=== PATIENT | male | born 1965 | race Caucasian/White ===

== ENCOUNTER 2023-07-01 08:23 | Emergency (ER) | payer OTHER ==
[~2023-07-01] VITALS: Ht 182.9 cm; Wt 120.0 kg
[2023-07-01 08:34] VITALS: BP 140/92
[2023-07-01] MEDS ORDERED: LAMO100 PO ×2 (08:58)
[2023-07-01] MEDS ORDERED: NADO40 PO (08:58)
[2023-07-01] MEDS ORDERED: LOSARTAN POTAS100 M1 PO (08:59)
[2023-07-01] MEDS ORDERED: Budeprion Xl300 MG PO (08:59)
== END 2023-07-01 10:00 | disposition home or self-care (01) ==
LOC: ER 08:23
DX: M25.531 Pain in right wrist (principal); I10 Essential (primary) hypertension; Z91.040 Latex allergy status; Z88.8 Allergy status to other drugs, medicaments and biological substances; Z79.899 Other long term (current) drug therapy
CPT/HCPCS: 99283

== ENCOUNTER 2023-10-13 09:17 | Day surgery (SDC) | payer BC ==
[~2023-10-13] VITALS: Ht 180.3 cm; Wt 119.3 kg
[~2023-10-13 09:17] MED LIST: ALLEGRA ALLERG180 MG PO; AZELASTINE137 MCG/06; Balanced Salt Epinephrine Irrigation Solution 500 mL IR SCH; Budeprion Xl300 MG PO; LAMO100 PO; LOSARTAN POTAS100 M1 PO; Lactated Ringer's 0 ML IV ONE; Lidocaine HCl/Pf 1% 5 ML VIAL XX SCH; MIRT30 PO; Midazolam HCl 1MG / ML 2ML Vial ONE; Moxifloxacin HCL 0.5 MG/0.1 ML 0.4MLSYR LEFTEYE SCH; NADO40 PO; NS 500 ML IV ONE; PHENYLEPHRINE\\TROPICAMIDE\\TETRACAINE OPHTHALMIC DILATING SOLN LEFTEYE PRN; Povidone-Iodine 450 DROP/30 ML Solution LEFTEYE SCH; Povidone-Iodine 450 DROP/30 ML Solution ONE; Triamcinolone Inj Susp 40 MG / ML 1ML Vial INJ SCH; Triamcinolone Inj Susp 40 MG / ML 1ML Vial ONE
[2023-10-13] MEDS ORDERED: NS 500 ML IV ONE ×2 (09:29)
[2023-10-13] MEDS ORDERED: NASACORT10.8 ML (09:33)
--- NOTE | 2023-10-13 09:48 | NUR ---
10/13/23 0948 Anay Dick IN AT 0931 PLEDGETT IN AT [address]
[2023-10-13] MEDS ORDERED: Triamcinolone Inj Susp 40 MG / ML 1ML Vial ONE (10:14)
[2023-10-13] MEDS ORDERED: Tetracaine HCl 0.5% Opth Soln 15 ml LEFTEYE ONE (10:15)
[2023-10-13 10:37] VITALS: BP 115/77
== END 2023-10-13 10:50 | disposition home or self-care (01) ==
LOC: ORSCSDS 09:17
PROVIDERS: Ophthalmology
PROC: 08RK3JZ Replacement of Left Lens with Synthetic Substitute, Percutaneous Approach (ICD-10-PCS; principal; 2023-10-13 10:30)
DX: H25.13 Age-related nuclear cataract, bilateral (principal); I10 Essential (primary) hypertension; D31.42 Benign neoplasm of left ciliary body; F32.A Depression, unspecified; G47.33 Obstructive sleep apnea (adult) (pediatric); E66.01 Morbid (severe) obesity due to excess calories; Z68.37 Body mass index [BMI] 37.0-37.9, adult; Z79.899 Other long term (current) drug therapy
CPT/HCPCS: J2250; J3301; J7040; J7120; V2632